=== PATIENT | male | born 1985 | race Caucasian/White ===

== ENCOUNTER 2017-05-18 14:54 | Emergency (ER) | payer OTHER ==
[2017-05-18 15:03] VITALS: BP 156/80; PULSE 66; TEMP 98; BMI 36.8
--- NOTE | 2017-05-18 15:10 | PDOC ---
Rapid Medical Evaluation Chief Complaint: Chest Pain Time Seen by Provider: 05/18/17 15:06 Medical Evaluation: Allergies Allergy/AdvReac Type Severity Reaction Status Date / Time No Known Allergies Allergy Verified 05/18/17 15:03 Vital Signs Temp Pulse Resp BP Pulse Ox 98.0 F 66 16 156/80 100 05/18/17 14:59 05/18/17 14:59 05/18/17 14:59 05/18/17 14:59 05/18/17 14:59 05/18/17 15:07 I have performed a brief in-person evaluation of this patient. The patient presents with a chief complaint of: Recurrent CP. Denies any pmhx or illicit drug drug Pertinent physical exam findings:Stable and well berhane w/ clear chest/lungs I have ordered the following:ekg The patient will proceed to the ED for further evaluation.
--- NOTE | 2017-05-27 11:58 | EKG ---
Test Reason : Blood Pressure : / mmHG Vent. Rate : 071 BPM Atrial Rate : 071 BPM P-R Int : 138 ms QRS Dur : 086 ms QT Int : 380 ms P-R-T Axes : 054 067 045 degrees QTc Int : 412 ms SINUS RHYTHM WITH MARKED SINUS ARRHYTHMIA WHEN COMPARED WITH ECG OF 20-MAY-2016 06:15, NO SIGNIFICANT CHANGE WAS FOUND Confirmed by ROHINI BIRCH MD ([id number]) on 05/27/2017 11:57:30 AM Referred By: Confirmed By:ROHINI BIRCH MD
== END 2017-05-18 17:19 | disposition left against medical advice (07) ==
LOC: JER 14:54
DX: Z53.21 Procedure and treatment not carried out due to patient leaving prior to being seen by health care provider (principal)
CPT/HCPCS: 93005; 93010; 99281-25

== ENCOUNTER 2018-04-30 16:09 | Emergency (ER) | payer OTHER ==
[2018-04-30 16:16] VITALS: BP 142/98; PULSE 63; TEMP 98; BMI 36.0
[2018-04-30] MEDS ORDERED: DEXAMETHASONE LIQUID 0.5 MG/5 ML 240 ML BULK BOTTLE PO ONE (16:46)
[2018-04-30] MEDS ORDERED: KETOROLAC TROMETHAMINE 30 MG/1 ML VIAL IM ONE (16:46)
[2018-04-30] MEDS ORDERED: KETOROLAC TROMETHAMINE 30 MG/1 ML VIAL ONE (16:52)
[2018-04-30] MEDS ORDERED: DEXAMETHASONE SOD PHOSPHATE 10 MG/1 ML VIAL ONE (16:52)
--- NOTE | 2018-04-30 16:52 | PDOC ---
History of Present Illness - General Chief Complaint: Headache Stated Complaint: FALL HEAD INJURY ON THE JOB Time Seen by Provider: 04/30/18 16:33 History Source: Patient Exam Limitations: No Limitations - History of Present Illness Initial Comments: 04/30/18 16:48 HISTORY OF PRESENT ILLNESS: This is a 32-year-old male without significant medical history presents emergency department for reevaluation of headache status post head trauma which occurred on 04/17. Patient has been seen and evaluated 3 times in an urgent care center for headaches but was dissatisfied with his care there. Patient reports having increased confusion and a general fogginess about his daily activities and he notices is not able to do things around the house as well as he did prior to the head injury. Patient reports an , initial injury struck the front of his head immediately above the left eyebrow did not lose consciousness at that time. He received a few stitches which is since been removed but never had any imaging of his primary. No recent travel or sick contacts. PAST MEDICAL HISTORY: Denies past medical history SURGICAL HISTORY: Denies ALLERGIES: No known drug allergies REVIEW OF SYSTEMS General/Constitutional: Denies fever or chills. Denies weakness, weight change. HEENT: Denies change in vision. Denies ear pain or discharge. +sore throat. Cardiovascular: Denies chest pain or shortness of breath. Respiratory: Denies cough, wheezing, or hemoptysis. Gastrointestinal: Denies nausea, vomiting, diarrhea or constipation. Denies rectal bleeding. Genitourinary: Denies dysuria, frequency, or change in urination. Musculoskeletal: Denies joint or muscle swelling or pain. Denies neck or back pain. Skin and breasts: Denies rash or easy bruising. Neurologic: +Frontal headache. Denies vertigo, loss of consciousness, or loss of sensation. Psychiatric: Denies depression or anxiety. Endocrine: Denies increased thirst. Denies abnormal weight change. Hematologic/Lymphatic: Denies anemia, easy bleeding, or history of blood clots. Allergic/Immunologic: Denies hives or skin allergy. Denies latex allergy. PHYSICAL EXAM General Appearance: Well-appearing, appropriately dressed. No apparent distress , no intoxication. HEENT: EOMI, PERRLA, normal ENT inspection, normal voice, TMs normal. Pharynx erythematous. No conjunctival pallor. No photophobia, scleral icterus. Neck: Supple. Trachea midline. No tenderness, rigidity, carotid bruit, stridor , lymphadenopathy, or thyromegaly. Respiratory/Chest: Lungs CTAB. No shortness of breath, chest tenderness, respiratory distress, accessory muscle use. No crackles, rales, rhonchi, stridor , wheezing, dullness Cardiovascular: RRR. S1, S2. No JVD, murmur, bradycardia, tachycardia. Vascular Pulses: Dorsalis-Pedis (R): 2+, Dorsalis-Pedis (L): 2+ Gastrointestinal/Abdominal: Normal bowel sounds. Abdomen soft, non-distended. No tenderness or rebound tenderness. No organomegaly, pulsatile mass, guarding, hernia, hepatomegaly, splenomegaly. Lymphatic: No adenopathy, tenderness. Musculoskeletal/Extremities: Normal inspection. FROM of all extremities, normal capillary refill. Pelvis Stable. No CVA tenderness. No tenderness to extremities, pedal edema, swelling, erythema or deformity. Integumentary: Appropriate color, dry, warm. No cyanosis, erythema, jaundice or rash Neurologic: manager financial II-XII intact. Fully oriented, alert. Appropriate mood/affect. Motor strength 5/5. No appreciable EOM palsy, facial droop or sensory deficit. Unable to perform serial calculations." DROWL"x2. Normal prjupm-fr-rikh testing. Past History - Past Medical History Allergies/Adverse Reactions: Allergies Allergy/AdvReac Type Severity Reaction Status Date / Time No Known Allergies Allergy Verified 04/30/18 16:16 Home Medications: Ambulatory Orders NK [No Known Home Medication] 07/20/14 COPD: No - Suicide/Smoking/Psychosocial Hx Smoking History: Never smoked Have you smoked in the past 12 months: Yes Hx Alcohol Use: Yes (occassionally) Drug/Substance Use Hx: No Substance Use Type: Alcohol *Physical Exam - Vital Signs Last Vital Signs Temp Pulse Resp BP Pulse Ox 98 F 63 18 142/98 98 04/30/18 16:12 04/30/18 16:12 04/30/18 16:12 04/30/18 16:12 04/30/18 16:12 Medical Decision Making - Medical Decision Making 04/30/18 16:52 A/P: 32-year-old male with residual headache status post head trauma Cranial nerves II through XII grossly intact PERRLA EOMI Unable to perform serial calculations "DROWL" x2 Symptoms are consistent with postconcussive syndrome. As patient is 2 weeks removed from initial injury I will defer imaging at this time. Patient also appears to have a pharyngitis which appears viral in nature. I'll treat the patient with 30 of Toradol IM and 10 mg of Decadron orally Discharge home *DC/Admit/Observation/Transfer Diagnosis at time of Disposition: Post concussive syndrome - Discharge Dispostion Disposition: HOME Condition at time of disposition: Stable Decision to Admit order: No - Referrals - Patient Instructions Printed Discharge Instructions: DI for Postconcussion Syndrome Additional Instructions: Make an appointment to primary doctor for reevaluation later this week. Return to the emergency department for any concerns. - Post Discharge Activity Forms/Work/School Notes: Back to Work
== END 2018-04-30 17:30 | disposition home or self-care (01) ==
LOC: JERFT 16:09
PROC: 3E0233Z Introduction of Anti-inflammatory into Muscle, Percutaneous Approach (ICD-10-PCS; principal; 2018-04-30)
DX: G44.319 Acute post-traumatic headache, not intractable (principal); F07.81 Postconcussional syndrome; W01.198A Fall on same level from slipping, tripping and stumbling with subsequent striking against other object, initial encounter; Y93.89 Activity, other specified; Y92.59 Other trade areas as the place of occurrence of the external cause; Y99.0 Civilian activity done for income or pay; J02.9 Acute pharyngitis, unspecified; B97.89 Other viral agents as the cause of diseases classified elsewhere
CPT/HCPCS: 99281-25

== ENCOUNTER 2019-05-18 23:00 | Emergency (ER) | payer OTHER ==
[2019-05-18 23:10] VITALS: BP 124/72; PULSE 78; TEMP 98.1; BMI 32.8
[2019-05-18] MEDS ORDERED: SODIUM CHLORIDE 1,000 ML IV STA (23:28)
--- NOTE | 2019-05-18 23:41 | PDOC ---
Documentation entered by Dima Felton SCRIBE, acting as scribe for Dalton Cordova MD. Dalton Cordova MD: This documentation has been prepared by the Jose Francisco oglesby Daniel, SCRIBE, under my direction and personally reviewed by me in its entirety. I confirm that the documentation accurately reflects all work, treatment, procedures, and medical decision making performed by me. History of Present Illness - General Chief Complaint: Pain, Acute Stated Complaint: LT ABD PAIN Time Seen by Provider: 05/18/19 23:21 History Source: Patient Exam Limitations: No Limitations - History of Present Illness Initial Comments: 05/18/19 23:30 The patient is a 33 year old male with no past medical history here today for evaluation of left lower abdominal pain. The patient reports that he has had 1 week of worsening left lower abdominal pain that has been getting worse. He states that his pain came on gradually, is sharp in quality, intermittent in few minute episodes, and has been having episodes of pain more frequently. He denies any prior episodes of similar abdominal pain. Patient denies headache, lightheadedness. Denies fever, chills. Denies chest pain, shortness of breath. Denies nausea, vomiting, diarrhea. Denies urinary symptoms. Allergies: NKA Social history: Patient confirms marijuana use. Denies tobacco and excessive alcohol use. Past History - Past Medical History Allergies/Adverse Reactions: Allergies Allergy/AdvReac Type Severity Reaction Status Date / Time No Known Allergies Allergy Verified 04/30/18 16:16 Home Medications: Ambulatory Orders Ciprofloxacin HCl [Cipro] 500 mg PO BID #14 tablet 05/19/19 metroNIDAZOLE [Flagyl -] 500 mg PO TID #21 tablet 05/19/19 COPD: No - Psycho Social/Smoking Cessation Hx Smoking History: Never smoked Have you smoked in the past 12 months: Yes Hx Alcohol Use: No Drug/Substance Use Hx: Yes (marijuana) Substance Use Type: Alcohol Review of Systems - Review of Systems Comments:: 05/18/19 23:33 GENERAL/CONSTITUTIONAL: No fever or chills. No weakness. HEAD, EYES, EARS, NOSE AND THROAT: No change in vision. No ear pain or discharge. No sore throat. CARDIOVASCULAR: No chest pain or shortness of breath. RESPIRATORY: No cough, wheezing, or hemoptysis. GASTROINTESTINAL: +left lower abdominal pain. No nausea, vomiting, diarrhea or constipation. GENITOURINARY: No dysuria, frequency, or change in urination. MUSCULOSKELETAL: No joint or muscle swelling or pain. No neck or back pain. SKIN: No rash NEUROLOGIC: No headache, vertigo, loss of consciousness, or change in strength/ sensation. ENDOCRINE: No increased thirst. No abnormal weight change. HEMATOLOGIC/LYMPHATIC: No anemia, easy bleeding, or history of blood clots. ALLERGIC/IMMUNOLOGIC: No hives or skin allergy. Constitutional: No: Chills, Fever Respiratory: No: Cough, Shortness of Breath Cardiac (ROS): No: Chest Pain ABD/GI: Yes: See HPI. No: Constipated, Diarrhea, Vomiting : No: Dysuria, Frequency, Flank Pain, Hematuria Integumentary: No: Rash All Other Systems: Reviewed and Negative *Physical Exam - Vital Signs Last Vital Signs Temp Pulse Resp BP Pulse Ox 98.1 F 78 19 124/72 100 05/18/19 23:01 05/18/19 23:01 05/18/19 23:01 05/18/19 23:01 05/18/19 23:01 - Physical Exam Comments: 05/18/19 23:31 GENERAL: The patient is awake, alert, and fully oriented, in no acute distress. HEAD: Normal with no signs of trauma. EYES: Pupils equal, round and reactive to light, extraocular movements intact, sclera anicteric, conjunctiva clear with no pallor. ENT: Ears normal, nares patent, oropharynx clear without exudates. Moist mucous membranes. NECK: Normal range of motion, supple without lymphadenopathy, JVD, or masses. LUNGS: Breath sounds equal, clear to auscultation bilaterally. No wheeze/ crackles. HEART: Regular rate and rhythm, normal S1 and S2 without murmur or rub. ABDOMEN: +left lower quadrant rebound tenderness. +left mid quadrant tenderness with voluntary guarding. Soft/nondistended. BS wnl. No palpable masses, inguinal lymphadenopathy, inguinal hernia. No hepatosplenomegaly. EXTREMITIES: Normal range of motion, no edema. No clubbing or cyanosis. No cords, erythema, or tenderness. NEUROLOGICAL: Cranial nerves II through XII grossly intact. Normal speech, normal gait. PSYCH: Normal mood, normal affect. SKIN: Warm, Dry, normal turgor, no rashes or lesions noted. ED Treatment Course - LABORATORY CBC & Chemistry Diagram: 05/18/19 23:35 05/18/19 23:35 - RADIOLOGY Radiology Studies Ordered: Category Date Time Status ABDOMEN & PELVIS CT WITH CONTR [CT] Stat CT Scan 05/18/19 23:28 Ordered Radiograph Interpretation: 05/19/19 01:42 CT abdomen pelvis: Diverticulosis colon. No bowel obstruction or inflammation. No free fluid or free air. No evidence for appendicitis. Unremarkable liver, spleen, stomach, pancreas, kidneys and gallbladder. Medical Decision Making - Medical Decision Making 05/18/19 23:38 A portion of this note was documented by scribe services under my direction. I have reviewed the details of the note, within reason, and agree with the documentation with the following case summary and management plan written by me. Healthy 33-year-old male with no significant past medical or surgical history presents with 1 week of i vital signs normal Ntermittent left lower quadrant discomfort and now 1 day of constant and more severe left lower quadrant pain without associated nausea/vomiting/diarrhea/ constipation or complaints. No history of similar pain, no surgical history , no personal or family history of diverticulosis. Never had endoscopy or colonoscopy. Afebrile Well-appearing, abdominal exam is soft/nondistended. Tender with guarding in the left lower quadrant with some referred rebound. No CVA tenderness. 33-year-old male with progressive left lower quadrant pain for 1 week, increased today. Exam localizes to that region with some early peritoneal findings, otherwise soft and nondistended and nontoxic-appearing. Presentation could be most consistent with GI etiology, colitis versus diverticulitis. Less likely etiology or vascular process. Labs, urinalysis IV fluids, CT of the abdomen and pelvis Declines pain medication at this time Reassess 05/19/19 01:10 labs are wnl, no leukocytosis, chem wnl including lipase, ua clear except for ketones and receiving IVF. CTAP then dispo accordingly. 05/19/19 01:46 CT shows diverticulosis but no evidence of diverticulitis. Given focal peritoneal findings in the left lower quadrant, will treat as early diverticulitis. Given Cipro and Flagyl orally here, will give antibiotic regimen, GI follow-up. Understands return criteria. Discharge - Discharge Information Problems reviewed: Yes Clinical Impression/Diagnosis: Left lower quadrant abdominal pain, Diverticula of colon Condition: Stable Disposition: HOME - Additional Discharge Information Prescriptions: Ciprofloxacin HCl [Cipro] 500 mg PO BID #14 tablet metroNIDAZOLE [Flagyl -] 500 mg PO TID #21 tablet - Follow up/Referral Referrals: Frannie Garnett DO [Staff Physician] - - Patient Discharge Instructions Patient Printed Discharge Instructions: DI for Diverticulitis Additional Instructions: Activity as tolerated. Stay hydrated. Blood tests and a urine test showed no acute abnormalities. A preliminary CT report does show evidence of diverticulosis, but it does NOT mention diverticulitis. Because of the increasing pain and tenderness there, we are treating as if it is early diverticulitis. Take Cipro and Flagyl as prescribed as antibiotic for 7 days. Tylenol 1000 mg every 8 hours and/or ibuprofen 600 mg every 8 hours as needed for pain. Continue your medications as previously prescribed by your physician. You should follow up with your primary doctor as soon as possible regarding today's emergency department visit. You should also see a GI specialist, consider calling Dr. Garnett. Return to the emergency department for any new or concerning symptoms, particularly persistent or worsening pain, fever or chills, bloody stool, persistent vomiting or dehydration. - Post Discharge Activity Work/Back to School Note: Back to Work
[2019-05-19] LABS: BASO % 0.9 % (0-2.0); EOS % 1.4 % (0-4.5); HEMATOCRIT 39.5 % (35.4-49); HEMOGLOBIN 13.7 GM/dL (11.7-16.9); LYMPH % 25.5 % (8-40); MCH 30.4 pg (25.7-33.7); MCHC 34.8 g/dl (32.0-35.9); MEAN CELL VOLUME 87.4 fl (80-96); MEAN PLT VOLUME 8.4 fl (7.5-11.1); MONO % 7.4 % (3.8-10.2); NEUT % 64.8 % (42.8-82.8); PLATELET COUNT 284 K/MM3 (134-434); RBC 4.52 M/mm3 (4.00-5.60); RDW 13.2 % (11.9-15.9); WHITE BLOOD COUNT 8.8 K/mm3 (4.0-10.0)
[2019-05-19 00:05] LABS: PH,URINE 5.5 (5.0-8.0); URINE APPEARANCE CLEAR; URINE BILIRUBIN NEGATIVE (NEGATIVE); URINE COLOR YELLOW; URINE GLUCOSE (UA) NEGATIVE (NEGATIVE); URINE KETONE TRACE (NEGATIVE); URINE LEUK ESTERASE NEGATIVE (NEGATIVE); URINE NITRITE NEGATIVE (NEGATIVE); URINE PROTEIN NEGATIVE (NEGATIVE); URINE UROBILINOGEN 0.2 mg/dL (0.2-1.0)
[2019-05-19 00:38] LABS: ALBUMIN 4.1 g/dl (3.4-5.0); BILIRUBIN,TOTAL 0.5 mg/dL (0.2-1); CALCIUM 9.1 mg/dL (8.5-10.1); CREATININE 1.1 mg/dL (0.55-1.3)
[2019-05-19] MEDS ORDERED: metroNIDAZOLE 250 MG TABLET PO ONE (01:45)
[2019-05-19] MEDS ORDERED: CIPROFLOXACIN 500 MG TABLET (RESTRICTED TO ID) PO ONE (01:45)
[2019-05-19] MEDS ORDERED: metroNIDAZOLE 250 MG TABLET ONE (01:48)
== END 2019-05-19 02:04 | disposition home or self-care (01) ==
LOC: JER 23:00
PROC: 3E0337Z Introduction of Electrolytic and Water Balance Substance into Peripheral Vein, Percutaneous Approach (ICD-10-PCS; principal; 2019-05-18)
DX: K57.90 Diverticulosis of intestine, part unspecified, without perforation or abscess without bleeding (principal)
CPT/HCPCS: 36415; 74177-TC; 80053; 81003; 83690; 85025; 99283-25; J7030

== ENCOUNTER 2019-05-30 22:40 | Emergency (ER) | payer OTHER ==
[2019-05-30 23:01] VITALS: BP 127/79; PULSE 75; TEMP 98.1; BMI 33.2
--- NOTE | 2019-05-30 23:43 | PDOC ---
History of Present Illness - General Chief Complaint: Pain Stated Complaint: STOMACH PAIN Time Seen by Provider: 05/30/19 23:42 - History of Present Illness Initial Comments: 05/31/19 00:45 HPI: 33 y/o M recently here for abdominal pain 2weeks ago DCd on abx for diverticulitis presenting with 24 hours of abdominal pain. Pain is in LLQ and without radiation and sharp in nature. Pain was initially intermittent but it is now constant and 8/10 pain. Patient denies n/v, fever, chills, dyspepsia, dysuria, diarrhea. Pain is not worsened with PO intake. Of note, patient completed 1 week of flagyl and ciprofloxacin and followed up with GI doc and followed recs for low fiber diet. PMHx: as noted above ROS: as noted SHx: Denies tobacco use; no alcohol use; no rec drugs Allergies: NKDA ROS: GENERAL/CONSTITUTIONAL: No fever or chills. No weakness. HEAD, EYES, EARS, NOSE AND THROAT: No change in vision. No ear pain or discharge. No sore throat. CARDIOVASCULAR: No chest pain or shortness of breath RESPIRATORY: No cough, wheezing, or hemoptysis. GASTROINTESTINAL: No nausea, vomiting, diarrhea or constipation. GENITOURINARY: No dysuria, frequency, or change in urination. MUSCULOSKELETAL: No joint or muscle swelling or pain. No neck or back pain. SKIN: No rash NEUROLOGIC: No headache, vertigo, loss of consciousness, or change in strength/ sensation. ENDOCRINE: No increased thirst. No abnormal weight change HEMATOLOGIC/LYMPHATIC: No anemia, easy bleeding, or history of blood clots. ALLERGIC/IMMUNOLOGIC: No hives or skin allergy. PE: GENERAL: Awake, alert, and fully oriented, no acute distress HEAD: No signs of trauma, normocephalic, atraumatic EYES: EOMI, sclera anicteric, conjunctiva clear ENT: Auricles normal inspection, hearing grossly normal, nares patent, oropharynx clear without exudates. Moist mucosa NECK: Normal ROM, no lymphadenopathy LUNGS: No increased work of breathing, symmetrical chest rise, clear to auscultation bilaterally, no wheezes, crackles or rhonchi HEART: Regular rate and rhythm, normal S1 and S2, no murmurs, peripheral pulses 2+ and equal bilaterally. ABDOMEN: Soft, nondistended, generalized abdominal TTP, normoactive bowel sounds. No guarding, no rebound. No masses. No CVAT : no inguinal or testicular hernia, penis and testicles appear normal, testicles nontender EXTREMITIES: Normal inspection, Normal range of motion, no edema. No clubbing or cyanosis. NEUROLOGICAL: Cranial nerves II through XII grossly intact. Normal speech, normal gait, no focal sensorimotor deficits SKIN: Warm, Dry, normal turgor, no rashes or lesions noted Past History - Past Medical History Allergies/Adverse Reactions: Allergies Allergy/AdvReac Type Severity Reaction Status Date / Time No Known Allergies Allergy Verified 04/30/18 16:16 Home Medications: Ambulatory Orders NK [No Known Home Medication] 05/31/19 COPD: No - Psycho Social/Smoking Cessation Hx Smoking History: Never smoked Have you smoked in the past 12 months: Yes Hx Alcohol Use: No Drug/Substance Use Hx: No Substance Use Type: Alcohol *Physical Exam - Vital Signs Last Vital Signs Temp Pulse Resp BP Pulse Ox 98.1 F 75 20 127/79 98 05/30/19 22:58 05/30/19 22:58 05/30/19 22:58 05/30/19 22:58 05/30/19 22:58 ED Treatment Course - LABORATORY CBC & Chemistry Diagram: 05/31/19 00:30 05/31/19 00:30 Medical Decision Making - Medical Decision Making 05/31/19 02:09 33 y/o M recently here for abdominal pain 2weeks ago DCd on abx for diverticulitis presenting with 24 hours of abdominal pain. VSS, AF. PE notable for generalized abd ttp. DDx includes recurrent diverticulitis vs colitis vs kidney stone vs GI virus. May consider kidney stone however no complaints of dysuria. Testicular torsion unlikely given normal exam and patient presentation not correlated -cbc, cmp, lipase, mg -ct abd/pel with iv/po contrast -ivf 05/31/19 04:44 CT abd/pel without any acute pathology; diverticulosis present as before but no signs of infection patient pain is improved and was resting comfortably in bed discussed with results and return pcxns; patient understands instructions and is comfortable with DC home with GI and PCP followup Discharge - Discharge Information Problems reviewed: Yes Clinical Impression/Diagnosis: Abdominal pain Qualifiers: Abdominal location: left lower quadrant Qualified Code(s): R10.32 - Left lower quadrant pain Condition: Stable Disposition: HOME - Follow up/Referral Referrals: Tom Pandey [Primary Care Provider] - - Patient Discharge Instructions Additional Instructions: Additional Instructions: Please return to the emergency department with any new or worsening symptoms or concerns including worsening abdominal pain, vomiting, fainting, bloody stools. Please follow up with your primary care physician and GI physician within 48-72 hours for further evaluation and management Please take tylenol 650mg every 6-8 hours and motrin 600mg every 6-8 hours as needed - Post Discharge Activity
[2019-05-31] MEDS ORDERED: SODIUM CHLORIDE 1,000 ML IV STA (00:44)
[2019-05-31 00:47] LABS: BASO % 0.8 % (0-2.0); EOS % 2.7 % (0-4.5); HEMATOCRIT 39.8 % (35.4-49); HEMOGLOBIN 13.1 GM/dL (11.7-16.9); MEAN CELL VOLUME 87.7 fl (80-96); MEAN PLT VOLUME 8.5 fl (7.5-11.1); MONO % 9.9 % (3.8-10.2); NEUT % 55.6 % (42.8-82.8); PLATELET COUNT 254 K/MM3 (134-434); RBC 4.54 M/mm3 (4.00-5.60); RDW 13.4 % (11.9-15.9); WHITE BLOOD COUNT 6.4 K/mm3 (4.0-10.0)
[2019-05-31 01:11] LABS: ALBUMIN 3.7 g/dl (3.4-5.0); BILIRUBIN,TOTAL 0.2 mg/dL (0.2-1); BLOOD UREA NITROGEN 19.1 mg/dL (7-18); CALCIUM 8.9 mg/dL (8.5-10.1); CREATININE 1.1 mg/dL (0.55-1.3); POTASSIUM 4.3 mmol/L (3.5-5.1); TOT PROT 6.4 g/dl (6.4-8.2)
[2019-05-31 02:08] LABS: PH,URINE 5.5 (5.0-8.0); URINE APPEARANCE CLEAR; URINE BILIRUBIN NEGATIVE (NEGATIVE); URINE COLOR YELLOW; URINE GLUCOSE (UA) NEGATIVE (NEGATIVE); URINE KETONE NEGATIVE (NEGATIVE); URINE LEUK ESTERASE NEGATIVE (NEGATIVE); URINE NITRITE NEGATIVE (NEGATIVE); URINE PROTEIN NEGATIVE (NEGATIVE); URINE UROBILINOGEN 0.2 mg/dL (0.2-1.0)
== END 2019-05-31 04:53 | disposition home or self-care (01) ==
LOC: JER 22:40
PROC: 3E0337Z Introduction of Electrolytic and Water Balance Substance into Peripheral Vein, Percutaneous Approach (ICD-10-PCS; principal; 2019-05-30)
DX: R10.32 Left lower quadrant pain (principal); K57.92 Diverticulitis of intestine, part unspecified, without perforation or abscess without bleeding
CPT/HCPCS: 36415; 74177-TC; 80053; 81003; 83690; 83735; 85025; 99283-25; J7030

== ENCOUNTER 2019-07-27 08:42 | Day surgery (SDC) | payer OTHER ==
[2019-07-23 14:50] VITALS: BMI 30.5
[2019-07-27] MEDS ORDERED: LIDOCAINE HCL/PF 2% SDV 5ML VIAL ONE (08:55)
[2019-07-27] MEDS ORDERED: PROPOFOL 20 ML ONE ×2 (08:55)
[2019-07-27 08:56] VITALS: TEMP 98.2
[2019-07-27] MEDS ORDERED: MIDAZOLAM HCL 2 MG/2 ML SINGLE DOSE VIAL ONE (09:35)
[2019-07-27 10:32] VITALS: BP 117/66; PULSE 61
== END 2019-07-27 10:20 | disposition home or self-care (01) ==
LOC: FASU 08:42
PROVIDERS: ATTEND Internal Medicine Gastroenterology
PROC: 0DJD8ZZ Inspection of Lower Intestinal Tract, Via Natural or Artificial Opening Endoscopic (ICD-10-PCS; principal; 2019-07-27 09:32)
DX: R10.9 Unspecified abdominal pain (principal); K64.1 Second degree hemorrhoids; K57.30 Diverticulosis of large intestine without perforation or abscess without bleeding

== ENCOUNTER 2021-10-15 15:08 | Emergency (ER) | payer OTHER ==
[2021-10-15 15:12] VITALS: BP 143/96; PULSE 63; TEMP 96.5; BMI 29.7
[2021-10-15 16:40] LABS: BASO % 1.4 % (0-2.0); EOS % 1.2 % (0-4.5); HEMATOCRIT 40.7 % (35.4-49); HEMOGLOBIN 13.6 GM/dL (11.7-16.9); LYMPH % 28.2 % (8-40); MCH 28.8 pg (25.7-33.7); MCHC 33.3 g/dl (32.0-35.9); MEAN CELL VOLUME 86.5 fl (80-96); MONO % 7.4 % (3.8-10.2); NEUT % 61.8 % (42.8-82.8); PLATELET COUNT 266 10^3/uL (134-434); RBC 4.71 M/mm3 (4.00-5.60); RDW 13.7 % (11.9-15.9); WHITE BLOOD COUNT 6.2 K/mm3 (4.0-10.0)
[2021-10-15 17:01] LABS: CALCIUM 9.1 mg/dL (8.5-10.1)
[2021-10-15 17:02] LABS: ALBUMIN 4.2 g/dl (3.4-5.0); BLOOD UREA NITROGEN 13.3 mg/dL (7-18)
[2021-10-15 17:05] LABS: CREATININE 0.9 mg/dL (0.55-1.3)
[2021-10-15 17:06] LABS: TOT PROT 7.4 g/dl (6.4-8.2)
[2021-10-15 17:07] LABS: BILIRUBIN,TOTAL 0.6 mg/dL (0.2-1)
[2021-10-15] MEDS ORDERED: KETOROLAC TROMETHAMINE 30 MG/1 ML VIAL IVPUSH ONE (17:17)
[2021-10-15] MEDS ORDERED: KETOROLAC TROMETHAMINE 30 MG/1 ML VIAL ONE (17:20)
== END 2021-10-15 19:52 | disposition home or self-care (01) ==
LOC: JER 15:08
PROC: 3E0233Z Introduction of Anti-inflammatory into Muscle, Percutaneous Approach (ICD-10-PCS; principal; 2021-10-15)
DX: R07.9 Chest pain, unspecified (principal)
CPT/HCPCS: 36415; 71046-TC-FY; 80053; 84443; 84484; 85025; 85379; 93005; 93010; 99285-25

== ENCOUNTER 2022-01-24 13:23 | Emergency (ER) | payer OTHER ==
[2022-01-24 13:37] VITALS: BP 122/73; PULSE 88; TEMP 97.8; BMI 29.7
== END 2022-01-24 14:30 | disposition home or self-care (01) ==
LOC: JERFT 13:23
DX: R20.2 Paresthesia of skin (principal); Z48.00 Encounter for change or removal of nonsurgical wound dressing
CPT/HCPCS: 99281-25

== ENCOUNTER 2022-12-14 14:36 | Emergency (ER) | payer OTHER ==
[2022-12-14 14:52] VITALS: BP 128/70; PULSE 63; RESP 18; TEMP 98.2; BMI 29.7
== END 2022-12-14 16:45 | disposition home or self-care (01) ==
LOC: JERFT 14:36
DX: S63.8X1A Sprain of other part of right wrist and hand, initial encounter (principal); M79.641 Pain in right hand; R22.31 Localized swelling, mass and lump, right upper limb; X50.0XXA Overexertion from strenuous movement or load, initial encounter
CPT/HCPCS: 73130-TC-RT-FY; 99283-25

== ENCOUNTER 2023-05-05 13:32 | Emergency (ER) | payer OTHER ==
[2023-05-05 13:41] VITALS: BP 158/78; PULSE 50; RESP 18; TEMP 98.1; BMI 30.5
[2023-05-05] MEDS ORDERED: ACETAMINOPHEN 500 MG TABLET (FP) PO ONE (14:28)
[2023-05-05] MEDS ORDERED: ACETAMINOPHEN 325 MG TABLET (FP) ONE (14:31)
[2023-05-05 14:57] LABS: BASO % 1.1 % (0-2.0); EOS % 0.9 % (0-4.5); HEMATOCRIT 41.2 % (35.4-49); LYMPH % 26.7 % (8-40); MCH 29.5 pg (25.7-33.7); MCHC 33.9 g/dl (32.0-35.9); MEAN PLT VOLUME 7.7 fl (7.5-11.1); MONO % 8.6 % (3.8-10.2); NEUT % 62.7 % (42.8-82.8); PLATELET COUNT 275 10^3/uL (134-434); RBC 4.73 M/mm3 (4.00-5.60); RDW 13.5 % (11.9-15.9); WHITE BLOOD COUNT 6.3 K/mm3 (4.0-10.0)
[2023-05-05 15:31] LABS: POTASSIUM 4.2 mmol/L (3.5-5.1)
[2023-05-05 15:33] LABS: CALCIUM 8.8 mg/dL (8.5-10.1)
[2023-05-05 15:34] LABS: ALBUMIN 4.1 g/dl (3.4-5.0); BLOOD UREA NITROGEN 11.9 mg/dL (7-18)
[2023-05-05 15:38] LABS: TOT PROT 7.1 g/dl (6.4-8.2)
[2023-05-05 15:39] LABS: BILIRUBIN,TOTAL 0.5 mg/dL (0.2-1)
== END 2023-05-05 16:21 | disposition home or self-care (01) ==
LOC: JER 13:32
DX: R55 Syncope and collapse (principal); R42 Dizziness and giddiness; S06.0X1A Concussion with loss of consciousness of 30 minutes or less, initial encounter; R45.7 State of emotional shock and stress, unspecified; R51.9 Headache, unspecified; X58.XXXA Exposure to other specified factors, initial encounter
CPT/HCPCS: 36415; 80053; 82962; 84484; 85025; 93005; 93010; 99284-25

== ENCOUNTER 2023-08-14 10:33 | Emergency (ER) | payer OTHER ==
[2023-08-14 10:37] VITALS: BP 145/93; PULSE 56; RESP 18; TEMP 98.2; BMI 31.3
[2023-08-14] MEDS ORDERED: CYCLOBENZAPRINE HCL 10 MG TABLET (FP) PO ONE (10:55)
[2023-08-14] MEDS ORDERED: IBUPROFEN 600 MG TABLET (FP) PO ONE ×2 (10:55→11:08)
[2023-08-14] MEDS ORDERED: LIDOCAINE 5% TOPICAL PATCH TP ONE (10:55)
[2023-08-14] MEDS ORDERED: LIDOCAINE 4% PATCH TP ONE (11:07)
[2023-08-14] MEDS ORDERED: LIDOCAINE PATCH REMOVAL MC SCH (22:00)
== END 2023-08-14 13:39 | disposition home or self-care (01) ==
LOC: JERFT 10:33
DX: M54.2 Cervicalgia (principal); M54.50 Low back pain, unspecified; M25.512 Pain in left shoulder; M25.511 Pain in right shoulder; M54.6 Pain in thoracic spine; M62.838 Other muscle spasm; X50.0XXA Overexertion from strenuous movement or load, initial encounter; Y99.0 Civilian activity done for income or pay
CPT/HCPCS: 72040-TC; 99283-25

== ENCOUNTER 2024-04-17 14:45 | Emergency (ER) | payer SELFPAY ==
[2024-04-17 15:00] VITALS: TEMP 98.3; BMI 31.4
[2024-04-17] MEDS ORDERED: hydrOXYzine PAMOATE 25 MG CAPSULE (FP) PO ONE (15:53)
[2024-04-17] MEDS: hydrOXYzine PAMOATE 25 MG CAPSULE (FP) PO ONE (15:56)
[2024-04-17 16:02] LABS: BASO % 0.8 % (0-2.0); EOS % 0.6 % (0-4.5); HEMATOCRIT 43.6 % (35.4-49); HEMOGLOBIN 14.6 GM/dL (11.7-16.9); MCH 29.2 pg (25.7-33.7); MCHC 33.4 g/dl (32.0-35.9); MEAN CELL VOLUME 87.2 fl (80-96); MONO % 7.8 % (3.8-10.2); NEUT % 71.8 % (42.8-82.8); PLATELET COUNT 274 10^3/uL (134-434); RDW 13.3 % (11.9-15.9); WHITE BLOOD COUNT 7.8 K/mm3 (4.0-10.0)
[2024-04-17 16:59] LABS: POTASSIUM 3.9 mmol/L (3.5-5.1)
[2024-04-17 17:02] LABS: ALBUMIN 4.3 g/dl (3.4-5.0); CALCIUM 9.6 mg/dL (8.5-10.1)
[2024-04-17 17:03] LABS: BLOOD UREA NITROGEN 10.6 mg/dL (7-18)
[2024-04-17 17:06] LABS: CREATININE 1.1 mg/dL (0.55-1.3)
[2024-04-17 17:08] LABS: BILIRUBIN,TOTAL 0.9 mg/dL (0.2-1); TOT PROT 7.3 g/dl (6.4-8.2)
[2024-04-17 17:34] VITALS: BP 154/96; PULSE 60; RESP 16
== END 2024-04-17 17:52 | disposition home or self-care (01) ==
LOC: JER 14:45
DX: R07.89 Other chest pain (principal); R06.02 Shortness of breath
CPT/HCPCS: 36415; 71046-TC-FY; 80053; 84484; 85025; 93005; 93010; 99285-25

== ENCOUNTER 2024-10-16 08:00 | Inpatient (IN) | payer OTHER ==
[2024-11-05 09:35] VITALS: BMI 30.5
[2024-11-08] MEDS: LACTATED RINGERS SOLUTION 1,000 ML/1,000 ML INFUS.BAG IV SCH (00:30)
[2024-11-08] MEDS: VANCOMYCIN 1 GM in D5W (PRE-DOCKED) 1,000 MG/250 ML (RESTRICTED TO ID ONLY IVPB ONE ×2 (07:22→08:20)
[2024-11-08] MEDS: ceFAZolin SODIUM 1 GM VIAL IVPB ONE ×2 (07:22→08:20)
[2024-11-08] MEDS: LIDOCAINE 1%/EPI 1:100000 (20 ML MULTI DOSE VIAL) IJ ONE ×2 (07:26→08:29)
[2024-11-08] MEDS ORDERED: GENTAMICIN SO4 80 MG/2 ML VIAL ONE (07:29)
[2024-11-08] MEDS ORDERED: THROMBIN (BOVINE) 20,000 UNIT VIAL TP ONE (07:29)
[2024-11-08] MEDS ORDERED: LIDOCAINE 1%/EPI 1:100000 (20 ML MULTI DOSE VIAL) ONE (07:29)
[2024-11-08] MEDS ORDERED: PROPOFOL 20 ML ONE (07:52)
[2024-11-08] MEDS ORDERED: LIDOCAINE HCL 2% 100 MG/5 ML DISP.SYRIN ONE (07:52)
[2024-11-08] MEDS ORDERED: DEXAMETHASONE SOD PHOSPHATE 4 MG/1 ML VIAL ONE (07:52)
[2024-11-08] MEDS ORDERED: ONDANSETRON 4 MG/2 ML VIAL ONE (07:52)
[2024-11-08] MEDS ORDERED: ROCURONIUM BROMIDE 50 MG/5 ML SYRINGE ONE (07:52)
[2024-11-08] MEDS ORDERED: MIDAZOLAM HCL 2 MG/2 ML SINGLE DOSE VIAL ONE ×2 (07:53→07:57)
[2024-11-08] MEDS ORDERED: ACETAMINOPHEN INJECTION 100 ML ONE ×2 (08:04)
[2024-11-08] MEDS ORDERED: VANCOMYCIN 1,000 MG VIAL (RESTRICTED TO ID ONLY) ONE (08:07)
[2024-11-08] MEDS ORDERED: TRANEXAMIC ACID 1000 MG/10 ML VIAL ONE (08:07)
[2024-11-08] MEDS ORDERED: ceFAZolin SODIUM 1 GM VIAL ONE ×2 (08:17)
[2024-11-08] MEDS: HYDROGEN PEROXIDE 473 ML PO ONE (08:45)
[2024-11-08] MEDS: GENTAMICIN SO4 80 MG/2 ML VIAL IVPB ONE (08:45)
[2024-11-08] MEDS ORDERED: PROMETHAZINE HCL 25 MG/1 ML VIAL IVPB PRN (08:56)
[2024-11-08] MEDS ORDERED: SUGAMMADEX SODIUM 200 MG/2 ML VIAL ONE (09:05)
[2024-11-08] MEDS ORDERED: NALOXONE HCL 0.4 MG/ML VIAL ONE (09:30)
[2024-11-08] MEDS ORDERED: oxyCODONE HCL 5 MG TABLET PO PRN ×2 (09:45)
[2024-11-08] MEDS ORDERED: ONDANSETRON 4 MG/2 ML VIAL IVPUSH PRN (09:45)
[2024-11-08] MEDS ORDERED: diphenhydrAMINE HCL 25 MG CAPSULE (FP) PO PRN (09:45)
[2024-11-08] MEDS ORDERED: HYDROmorphone HCl 2 MG/ML VIAL IVPB PRN (09:48)
[2024-11-08] MEDS: ONDANSETRON 4 MG/2 ML VIAL IVPUSH PRN (10:01)
[2024-11-08] MEDS: LACTATED RINGERS SOLUTION 1,000 ML IV SCH (13:22)
[2024-11-08] MEDS: FERROUS SO4 325 MG TABLET (FP) PO SCH (13:23)
[2024-11-08] MEDS: ACETAMINOPHEN 1000 MG/100 ML BAG IVPB SCH (13:23)
[2024-11-08] MEDS: HEPARIN NA (PORCINE) 5,000 UNITS/ML 1ML VIAL SQ SCH (13:23)
[2024-11-08] MEDS: FOLIC ACID 1 MG TABLET (FP) PO SCH (13:23)
[2024-11-08] MEDS: DOCUSATE SODIUM 100 MG CAPSULE (FP) PO SCH (13:24)
[2024-11-08] MEDS: CEFAZOLIN 1 GM/D5W 1 GM/50 ML BAG IVPB SCH (17:56)
[2024-11-08] MEDS: CEFAZOLIN 1 GM in DEXTROSE 5%-WATER - 50 ML IVPB SCH (18:07)
[2024-11-08] MEDS ORDERED: HYDROmorphone HCL CARPU-JECT 2 MG/1 ML DISP.SYRIN IVPB PRN (23:53)
[2024-11-09 08:12] LABS: HEMATOCRIT 40.6 % (40.1-51.0); HEMOGLOBIN 13.2 g/dL (13.7-17.5); MCHC 32.5 g/dl (32.3-36.5); MEAN CELL VOLUME 87.9 fl (79.0-92.2); MEAN PLT VOLUME 10.2 fl (9.4-12.4); PLATELET COUNT 301 x10^3/uL (163-337); RDW 12.7 % (12.0-15.6)
[2024-11-09 08:41] LABS: POTASSIUM 4.1 mmol/L (3.5-5.1)
[2024-11-09 08:49] LABS: CALCIUM 9.6 mg/dL (8.5-10.1)
[2024-11-09 08:53] LABS: CREATININE 0.9 mg/dL (0.55-1.3)
[2024-11-09] MEDS: amLODIPine BESYLATE 5 MG TABLET (FP) PO SCH (09:34)
[2024-11-09 12:20] VITALS: RESP 18
[2024-11-09 15:21] LABS: ABSOLUTE IMMATURE GRANULOCYTES 0.08 x10^3/uL (0.0-0.031); BASOPHILS # 0.02 x10^3/uL (0.01-0.08); HEMATOCRIT 40.1 % (40.1-51.0); HEMOGLOBIN 12.9 g/dL (13.7-17.5); MCHC 32.2 g/dl (32.3-36.5); MEAN CELL VOLUME 87.2 fl (79.0-92.2); MEAN PLT VOLUME 10.1 fl (9.4-12.4); MONOCYTE # 1.22 x10^3/uL (0.30-0.82); MONOCYTE % 7.1 % (5.3-12.2); PLATELET COUNT 292 x10^3/uL (163-337); RDW 12.7 % (12.0-15.6)
[2024-11-09 15:40] VITALS: BP 149/92; PULSE 65; TEMP 98.4
== END 2024-11-09 18:55 | disposition home or self-care (01) | DRG 321 ==
LOC: J2C 11-08 06:22 → J8W 11-08 12:06
PROVIDERS: ADMIT Family Medicine; ATTEND Family Medicine
PROC: 0RB30ZZ Excision of Cervical Vertebral Disc, Open Approach (ICD-10-PCS; 2024-11-08)
PROC: 01N10ZZ Release Cervical Nerve, Open Approach (ICD-10-PCS; 2024-11-08)
PROC: 4A11X4G Monitoring of Peripheral Nervous Electrical Activity, Intraoperative, External Approach (ICD-10-PCS; 2024-11-08)
PROC: 0RG10A0 Fusion of Cervical Vertebral Joint with Interbody Fusion Device, Anterior Approach, Anterior Column, Open Approach (ICD-10-PCS; principal; 2024-11-08 08:00)
DX: M50.322 Other cervical disc degeneration at C5-C6 level (principal); M53.2X2 Spinal instabilities, cervical region; I10 Essential (primary) hypertension; D72.829 Elevated white blood cell count, unspecified; M40.292 Other kyphosis, cervical region
CPT/HCPCS: 36415; 72125-TC; 76000-TC-FY; 80048; 85025; 85027; 86850; 86900; 86901; 94010; 94760; 97116-GP; 97161-GP; C1713; J0131; J1644